=== PATIENT | male | born 1950 | race Caucasian/White ===

== ENCOUNTER 2019-02-02 08:30 | Day surgery (SDC) | payer MEDICARE ==
[~2019-02-02 08:30] MED LIST: Midazolam* 1 MG/ML 2 ML VIAL (2 MG) ONE
[2019-02-02] MEDS ORDERED: Midazolam* 1 MG/ML 2 ML VIAL (2 MG) ONE (10:40)
--- NOTE | 2019-02-02 11:54 | OP ---
DATE OF OPERATION: 02/02/19 [facility] DATE OF : 50 SURGEON: Hira Waggoner M.D. PREOPERATIVE DIAGNOSIS: Cataract, right eye. POSTOPERATIVE DIAGNOSIS: Cataract, right eye. OPERATIVE PROCEDURE: Extracapsular cataract extraction with intraocular lens implant, right eye. PROCEDURE: The patient was brought to the operating room after being given 1/2 % Alcaine with epinephrine drops in the preoperative area. The eye was prepped and draped in the usual sterile fashion. Sterile drape and eyelid speculum were placed. Again, topical 1/2% Alcaine with epinephrine was given. A paracentesis incision was made at the 9 o'clock position with the No.75 blade. Clear cornea incision 2.2 x 2.2 mm was created at the 12 o'clock position starting at the anterior limbus using the 2.2 mm keratome. The anterior chamber was irrigated with 0.4 mL of 1% non-preservative intracameral lidocaine and filled with DisCoVisc. A capsulorrhexis was completed using the cystotome and the Utrata forceps. Hydrodissection was performed with balanced salt solution. The lens nucleus was removed with the Phacoemulsification handpiece without incident. Cortex was removed with the irrigation-aspiration handpiece. The capsular bag was re-inflated using DisCoVisc and an SN60WF 18.5 implant was inserted with the shooter. The irrigation-aspiration handpiece was used to remove all residual DisCoVisc. The eye was refilled with balanced salt solution and the wound checked and found to be watertight. Topical Maxitrol drops were given. [id number]/[facility] #: [id number] [facility]ENTERMaya
[2019-02-02 11:58] VITALS: BP 125/75
[2019-02-02] MEDS ORDERED: Lidocaine 1% MPF ** 5 ML VIAL ONE (12:22)
[2019-02-02] MEDS ORDERED: Phenylephrine OPHTH SOL 2.5%* 2 ML ONE (12:22)
[2019-02-02] MEDS ORDERED: Cyclopentolate 1% OPTH.SOL* 2 ML BTL ONE (12:22)
[2019-02-02] MEDS ORDERED: Neomycin/Polymy/Dex OPTH.SUSP* MAXITROL 0.1% 5 ML ONE (12:22)
[2019-02-02] MEDS ORDERED: Proparacaine 0.5% OPHTH.SOL* 15 ML BTL ONE (12:22)
[2019-02-02] MEDS ORDERED: Ketorolac 0.5% OPHTH (NF) 0.5 % 5 ML BTL ONE (12:22)
[2019-02-02] MEDS ORDERED: Lidocaine 2% w/ EPI 1:200,000* 20 ML SDV VIAL ONE (12:22)
[2019-02-02] MEDS ORDERED: acetaZOLAMIDE TAB* 250 MG ONE (12:22)
[2019-02-02] MEDS ORDERED: Povidone Iodine 5% OPTH* 30 ML BTL ONE (12:22)
== END 2019-02-02 11:17 | disposition home or self-care (01) ==
LOC: OREAST 08:30
PROVIDERS: ATTEND Specialist
DX: H25.811 Combined forms of age-related cataract, right eye (principal); E11.9 Type 2 diabetes mellitus without complications; Z79.84 Long term (current) use of oral hypoglycemic drugs; I10 Essential (primary) hypertension; M10.9 Gout, unspecified; F41.8 Other specified anxiety disorders; E78.5 Hyperlipidemia, unspecified; Z85.51 Personal history of malignant neoplasm of bladder
CPT/HCPCS: A9270-GY; J2250; V2632

== ENCOUNTER 2019-02-23 08:24 | Day surgery (SDC) | payer MEDICARE ==
[~2019-02-23 08:24] MED LIST changes: +Buffered Lidocaine 1% SYRIN* 1 ML/SYRINGE INTRADERM ONE; +Cyclopentolate 1% OPTH.SOL* 2 ML BTL ONE; +Ketorolac 0.5% OPHTH (NF) 0.5 % 5 ML BTL ONE; +Lidocaine 1% MPF ** 5 ML VIAL ONE; +Lidocaine 2% w/ EPI 1:200,000* 20 ML SDV VIAL ONE; -Midazolam* 1 MG/ML 2 ML VIAL (2 MG) ONE; +Neomycin/Polymy/Dex OPTH.SUSP* MAXITROL 0.1% 5 ML ONE; +Phenylephrine OPHTH SOL 2.5%* 2 ML ONE; +Povidone Iodine 5% OPTH* 30 ML BTL ONE; +Proparacaine 0.5% OPHTH.SOL* 15 ML BTL ONE; +acetaZOLAMIDE TAB* 250 MG ONE
[2019-02-23] MEDS ORDERED: Midazolam* 1 MG/ML 2 ML VIAL (2 MG) ONE ×2 (10:02→10:22)
[2019-02-23 12:45] VITALS: BP 133/60
--- NOTE | 2019-02-23 13:15 | OP ---
DATE OF OPERATION: 02/23/[address] [facility] DATE OF : 50 SURGEON: Hira Waggoner M.D. PREOPERATIVE DIAGNOSIS: Cataract, left eye. POSTOPERATIVE DIAGNOSIS: Cataract, left eye. OPERATIVE PROCEDURE: Extracapsular cataract extraction with intraocular lens implant left eye. DESCRIPTION OF PROCEDURE: The patient was brought to the operating room after being given 1/2% Alcaine with epinephrine drops in the preoperative area. The eye was prepped and draped in the usual sterile fashion. Sterile drape and eyelid speculum were placed. Again, topical 1/2% Alcaine with epinephrine was given. A paracentesis incision was made at the 3 o'clock position with the No.75 blade. Clear cornea incision 2.2 x 2.2-mm was created at the 6 o'clock position starting at the anterior limbus using the 2.2-mm keratome. The anterior chamber was irrigated with 0.4 mL of 1% non-preservative intracameral lidocaine and filled with DisCoVisc. A capsulorrhexis was completed using the cystotome and the Utrata forceps. Hydrodissection was performed with balanced salt solution. The lens nucleus was removed with the Phacoemulsification handpiece without incident. Cortex was removed with the irrigation-aspiration handpiece. The capsular bag was re-inflated using DisCoVisc and an SN60WF 19.5 implant was inserted with the shooter. The irrigation-aspiration handpiece was used to remove all residual DisCoVisc. The eye was refilled with balanced salt solution and the wound checked and found to be watertight. Topical Maxitrol drops were given. [id number]/[facility] #: [id number] [facility]
== END 2019-02-23 11:10 | disposition home or self-care (01) ==
LOC: OREAST 08:24
PROVIDERS: ATTEND Specialist
DX: H25.812 Combined forms of age-related cataract, left eye (principal); E11.9 Type 2 diabetes mellitus without complications; Z79.84 Long term (current) use of oral hypoglycemic drugs; I10 Essential (primary) hypertension; E78.5 Hyperlipidemia, unspecified; M10.9 Gout, unspecified; Z85.51 Personal history of malignant neoplasm of bladder
CPT/HCPCS: A9270-GY; J2250; V2632

== ENCOUNTER 2019-10-10 07:26 | Inpatient (IN) ==
[2019-10-10] MEDS ORDERED: NS 0.9% 1000 ml BAG 1,000 ML IV ONE ×2 (07:48→08:58)
[2019-10-10] MEDS ORDERED: metroNIDAZOLE IV 500 MG/100ML 500 MG/100 ML BAG IVPB ONE (08:00)
[2019-10-10] MEDS ORDERED: Cefepime 2 GM in NS 0.9% 50 ML 50 ML IVPB ONE (08:14)
[2019-10-10 08:31] LABS: ABS Lymphocytes 0.8 10^3/ul (1.0-4.8); ABS Monocytes 1.5 10^3/ul (0-0.8); Eosinophil % 0.1 %; Hematocrit 35 % (42-52); Hemoglobin 12.7 g/dL (14.0-18.0); Mean Corpuscular HGB Conc 36 g/dL (31-36); Mean Corpuscular Hemoglobin 31 pg (27-31); Mean Corpuscular Volume 86 fL (80-94); Mean Platelet Volume 6.4 fL (7.4-10.4); Platelet Count 368 10^3/uL (150-450); Red Blood Count 4.08 10^6 /uL (4.18-5.48); Red Cell Distribution Width 13 % (10-15); White Blood Count 15.5 10^3/uL (3.5-10.8)
[2019-10-10] MEDS ORDERED: NS 0.9% 50 ML 50 ML ONE (08:33)
[2019-10-10 08:37] LABS: INR 1.31 (0.82-1.09)
[2019-10-10 08:45] LABS: Albumin 3.9 g/dL (3.2-5.2); Albumin/Globulin Ratio 1.2 (1-3); BUN/Creatinine Ratio 20.7 (8-20); C Reactive Protein 111.08 mg/L (<8.01); Calcium 9.7 mg/dL (8.6-10.3); EGFR African American 98.7 (>60); EGFR Non-African American 81.6 (>60); Globulin 3.2 g/dL (2-4); Potassium 4.3 mmol/L (3.5-5.0); Total Bilirubin 0.7 mg/dL (0.2-1.0); Total Protein 7.1 g/dL (6.4-8.9)
[2019-10-10] MEDS ORDERED: NS 0.9% 250 ml 250 ML ONE (08:46)
[2019-10-10] MEDS ORDERED: Cefepime 2 GM in Dextrose 2 GM/50 ML BAG IV ONE (09:00)
[2019-10-10] MEDS ORDERED: Vancomycin 1,500 MG in NS 0.9% 250 ml 250 ML IVPB ONE (09:00)
[2019-10-10 09:41] LABS: Erythrocyte Sed Rate 0 mm/Hr (0-19)
[2019-10-10] MEDS ORDERED: Lactated Ringers 1000 ml BAG 1,000 ML IV SCH (12:00)
[2019-10-10] MEDS: NS 0.9% 1000 ml BAG 1,000 ML IV SCH (12:51)
[2019-10-10 13:09] LABS: BUN/Creatinine Ratio 20.7 (8-20); Calcium 9.2 mg/dL (8.6-10.3); EGFR African American 112.7 (>60); EGFR Non-African American 93.2 (>60)
[2019-10-10] MEDS: Cefepime 1 GM in Dextrose 1 GM/50 ML BAG IV SCH (22:32)
[2019-10-11 06:19] LABS: ABS Eosinophils 0.1 10^3/ul (0-0.6); ABS Lymphocytes 1.2 10^3/ul (1.0-4.8); ABS Monocytes 1.5 10^3/ul (0-0.8); Eosinophil % 0.5 %; Hematocrit 33 % (42-52); Hemoglobin 11.9 g/dL (14.0-18.0); Lymphocyte % 9.3 %; Mean Corpuscular HGB Conc 36 g/dL (31-36); Mean Corpuscular Hemoglobin 31 pg (27-31); Mean Corpuscular Volume 87 fL (80-94); Mean Platelet Volume 6.3 fL (7.4-10.4); Platelet Count 362 10^3/uL (150-450); Red Blood Count 3.85 10^6 /uL (4.18-5.48); Red Cell Distribution Width 13 % (10-15); White Blood Count 12.7 10^3/uL (3.5-10.8)
[2019-10-11 06:46] LABS: BUN/Creatinine Ratio 19.7 (8-20); Calcium 9.2 mg/dL (8.6-10.3); EGFR Non-African American 101.7 (>60); Potassium 4.3 mmol/L (3.5-5.0)
[2019-10-11] MEDS: Cefepime 1 GM in Dextrose 1 GM/50 ML BAG IV SCH ×2 (08:05→20:22)
[2019-10-11] MEDS: NS 0.9% 1000 ml BAG 1,000 ML IV SCH (08:15)
[2019-10-11] MEDS: Enoxaparin 40 MG/0.4 ML SYR SUBCUT SCH (12:05)
[2019-10-11] MEDS: Metoprolol Succinate XL 200 mg TAB PO SCH (12:05)
[2019-10-12] MEDS: NS 0.9% 1000 ml BAG 1,000 ML IV SCH (05:14)
[2019-10-12 06:53] LABS: BUN/Creatinine Ratio 18.6 (8-20); Calcium 9.4 mg/dL (8.6-10.3); EGFR African American 135.3 (>60); EGFR Non-African American 111.8 (>60); Potassium 4.1 mmol/L (3.5-5.0)
[2019-10-12] MEDS: Cefepime 1 GM in Dextrose 1 GM/50 ML BAG IV SCH ×2 (08:16→21:17)
[2019-10-12 11:34] LABS: C Reactive Protein 51.21 mg/L (<8.01)
[2019-10-12] MEDS: Metoprolol Succinate XL 200 mg TAB PO SCH (11:36)
[2019-10-12] MEDS: Enoxaparin 40 MG/0.4 ML SYR SUBCUT SCH (11:58)
[2019-10-13 06:23] LABS: BUN/Creatinine Ratio 16.7 (8-20); Calcium 9.2 mg/dL (8.6-10.3); EGFR Non-African American 108.2 (>60); Potassium 4.3 mmol/L (3.5-5.0)
[2019-10-13] MEDS: Cefepime 1 GM in Dextrose 1 GM/50 ML BAG IV SCH ×2 (08:04→20:52)
[2019-10-13 11:09] LABS: TSH (Thyroid Stimulating Horm) 3.06 mcIU/mL (0.34-5.60)
[2019-10-13] MEDS: Enoxaparin 40 MG/0.4 ML SYR SUBCUT SCH (13:05)
[2019-10-13] MEDS: Metoprolol Succinate XL 200 mg TAB PO SCH (13:06)
[2019-10-13] MEDS ORDERED: Dextrose 50% Syringe 50 ml 25 GM/50 ML SYRINGE IV PUSH PRN (17:05)
[2019-10-14 06:26] LABS: ABS Eosinophils 0.1 10^3/ul (0-0.6); ABS Lymphocytes 1.5 10^3/ul (1.0-4.8); ABS Monocytes 1.2 10^3/ul (0-0.8); Eosinophil % 0.8 %; Hematocrit 33 % (42-52); Hemoglobin 11.6 g/dL (14.0-18.0); Lymphocyte % 11.1 %; Mean Corpuscular HGB Conc 35 g/dL (31-36); Mean Corpuscular Hemoglobin 30 pg (27-31); Mean Corpuscular Volume 87 fL (80-94); Mean Platelet Volume 6.2 fL (7.4-10.4); Nucleated Red Blood Cells % 0.1; Platelet Count 383 10^3/uL (150-450); Red Blood Count 3.82 10^6 /uL (4.18-5.48); Red Cell Distribution Width 13 % (10-15); White Blood Count 13.6 10^3/uL (3.5-10.8)
[2019-10-14 06:45] LABS: C Reactive Protein 25.17 mg/L (<8.01)
[2019-10-14] MEDS: Cefepime 1 GM in Dextrose 1 GM/50 ML BAG IV SCH ×3 (11:09→20:41)
[2019-10-14] MEDS: Metoprolol Succinate XL 200 mg TAB PO SCH (11:48)
[2019-10-14 16:08] LABS: INR 1.24 (0.82-1.09)
[2019-10-14 16:25] LABS: Potassium 4.2 mmol/L (3.5-5.0)
[2019-10-14] MEDS ORDERED: ceFAZolin 1 GM ADVAN 1 GM ADDV.VIAL IVPB ONE (17:02)
[2019-10-14] MEDS ORDERED: Propofol 10 MG/ML 20 ML BTL ONE (17:24)
[2019-10-14] MEDS ORDERED: Succinylcholine 200 mg VIAL 20 mg/ml 10 ml VIAL (200 mg) ONE (17:24)
[2019-10-14] MEDS ORDERED: Glycopyrrolate IV 0.2 MG/ML 1 ML VIAL ONE (17:24)
[2019-10-14] MEDS ORDERED: Rocuronium 50 mg VIAL 10 mg/ml 5 ml VIAL (50 mg) ONE (17:30)
[2019-10-14] MEDS ORDERED: fentaNYL 100 mcg/2 ml 50 MCG/ML VIAL ONE (17:31)
[2019-10-14] MEDS ORDERED: EPHEDrine (Pressors) 50 MG/ML VIAL ONE (17:52)
[2019-10-14] MEDS ORDERED: Dexamethasone IV 4 MG/ML VIAL 1 ml VIAL ONE (18:14)
[2019-10-14] MEDS ORDERED: Ondansetron 4 mg VIAL 2 MG/ML 2 ml VIAL ONE (18:14)
[2019-10-14 18:15] LABS: Uric Acid 6.1 mg/dL (4.4-7.6)
[2019-10-14] MEDS ORDERED: fentaNYL 100 mcg/2 ml 50 MCG/ML VIAL IV PRN (18:32)
[2019-10-14] MEDS ORDERED: Ondansetron 4 mg VIAL 2 MG/ML 2 ml VIAL IV PRN (18:32)
[2019-10-14] MEDS ORDERED: Naloxone 0.4 mg VIAL 0.4 mg/ml 1 ml VIAL IV PRN (18:32)
[2019-10-14] MEDS ORDERED: NS 0.9% 1000 ml BAG 1,000 ML IV SCH (20:15)
[2019-10-14] MEDS: HYDROcodone/ACETAMIN 5/325 mg TAB PO PRN (21:45)
[2019-10-15 06:26] LABS: ABS Lymphocytes 0.9 10^3/ul (1.0-4.8); Eosinophil % 0.1 %; Hematocrit 36 % (42-52); Hemoglobin 12.4 g/dL (14.0-18.0); Lymphocyte % 5.1 %; Mean Corpuscular HGB Conc 34 g/dL (31-36); Mean Corpuscular Hemoglobin 30 pg (27-31); Mean Corpuscular Volume 87 fL (80-94); Mean Platelet Volume 6.2 fL (7.4-10.4); Platelet Count 432 10^3/uL (150-450); Red Blood Count 4.14 10^6 /uL (4.18-5.48); Red Cell Distribution Width 13 % (10-15); White Blood Count 18.2 10^3/uL (3.5-10.8)
[2019-10-15 06:53] LABS: BUN/Creatinine Ratio 19.4 (8-20); Calcium 9.7 mg/dL (8.6-10.3); EGFR African American 142.3 (>60); EGFR Non-African American 117.6 (>60); Potassium 4.6 mmol/L (3.5-5.0)
[2019-10-15] MEDS: Cefepime 1 GM in Dextrose 1 GM/50 ML BAG IV SCH ×2 (09:12→21:13)
[2019-10-15] MEDS: HYDROcodone/ACETAMIN 5/325 mg TAB PO PRN ×2 (09:13→18:03)
[2019-10-15] MEDS: Enoxaparin 40 MG/0.4 ML SYR SUBCUT SCH (09:14)
[2019-10-15] MEDS: Metoprolol Succinate XL 200 mg TAB PO SCH (12:49)
[2019-10-16 06:20] LABS: ABS Basophils 0.1 10^3/ul (0-0.2); ABS Eosinophils 0.2 10^3/ul (0-0.6); ABS Lymphocytes 1.8 10^3/ul (1.0-4.8); ABS Monocytes 1.3 10^3/ul (0-0.8); Eosinophil % 1.1 %; Hematocrit 35 % (42-52); Hemoglobin 12.6 g/dL (14.0-18.0); Lymphocyte % 13.4 %; Mean Corpuscular HGB Conc 36 g/dL (31-36); Mean Corpuscular Hemoglobin 31 pg (27-31); Mean Corpuscular Volume 87 fL (80-94); Mean Platelet Volume 6.3 fL (7.4-10.4); Platelet Count 440 10^3/uL (150-450); Red Blood Count 4.05 10^6 /uL (4.18-5.48); Red Cell Distribution Width 13 % (10-15); White Blood Count 13.7 10^3/uL (3.5-10.8)
[2019-10-16 06:43] LABS: BUN/Creatinine Ratio 17.1 (8-20); C Reactive Protein 14.84 mg/L (<8.01); Calcium 9.4 mg/dL (8.6-10.3); EGFR Non-African American 101.7 (>60); Potassium 4.2 mmol/L (3.5-5.0)
[2019-10-16] MEDS: Enoxaparin 40 MG/0.4 ML SYR SUBCUT SCH (08:09)
[2019-10-16] MEDS: Cefepime 1 GM in Dextrose 1 GM/50 ML BAG IV SCH ×2 (08:10→22:00)
[2019-10-16] MEDS: Metoprolol Succinate XL 200 mg TAB PO SCH (11:52)
[2019-10-16] MEDS: HYDROcodone/ACETAMIN 5/325 mg TAB PO PRN (15:12)
[2019-10-17 06:31] LABS: ABS Basophils 0.1 10^3/ul (0-0.2); ABS Eosinophils 0.1 10^3/ul (0-0.6); ABS Lymphocytes 1.2 10^3/ul (1.0-4.8); Eosinophil % 1.2 %; Hematocrit 34 % (42-52); Hemoglobin 11.9 g/dL (14.0-18.0); Lymphocyte % 11.3 %; Mean Corpuscular HGB Conc 35 g/dL (31-36); Mean Corpuscular Hemoglobin 31 pg (27-31); Mean Corpuscular Volume 87 fL (80-94); Mean Platelet Volume 5.9 fL (7.4-10.4); Platelet Count 355 10^3/uL (150-450); Red Blood Count 3.88 10^6 /uL (4.18-5.48); Red Cell Distribution Width 14 % (10-15); White Blood Count 10.7 10^3/uL (3.5-10.8)
[2019-10-17 06:49] LABS: BUN/Creatinine Ratio 15.7 (8-20); C Reactive Protein 12.72 mg/L (<8.01); Calcium 9.1 mg/dL (8.6-10.3); EGFR African American 135.3 (>60); EGFR Non-African American 111.8 (>60); Potassium 4.2 mmol/L (3.5-5.0)
[2019-10-17] MEDS: Cefepime 1 GM in Dextrose 1 GM/50 ML BAG IV SCH ×2 (09:05→20:24)
[2019-10-17] MEDS: Enoxaparin 40 MG/0.4 ML SYR SUBCUT SCH (09:06)
[2019-10-17] MEDS: Metoprolol Succinate XL 200 mg TAB PO SCH (11:25)
[2019-10-18 07:51] LABS: ABS Eosinophils 0.2 10^3/ul (0-0.6); ABS Lymphocytes 0.9 10^3/ul (1.0-4.8); Eosinophil % 1.6 %; Hematocrit 36 % (42-52); Hemoglobin 12.6 g/dL (14.0-18.0); Lymphocyte % 8.5 %; Mean Corpuscular HGB Conc 35 g/dL (31-36); Mean Corpuscular Hemoglobin 31 pg (27-31); Mean Corpuscular Volume 88 fL (80-94); Mean Platelet Volume 6.3 fL (7.4-10.4); Platelet Count 365 10^3/uL (150-450); Red Blood Count 4.09 10^6 /uL (4.18-5.48); Red Cell Distribution Width 14 % (10-15)
[2019-10-18 07:55] LABS: BUN/Creatinine Ratio 14.9 (8-20); C Reactive Protein 11.77 mg/L (<8.01); Calcium 9.4 mg/dL (8.6-10.3); EGFR African American 126.9 (>60); EGFR Non-African American 104.9 (>60); Potassium 4.1 mmol/L (3.5-5.0)
[2019-10-18] MEDS: Enoxaparin 40 MG/0.4 ML SYR SUBCUT SCH (09:28)
[2019-10-18] MEDS: Cefepime 1 GM in Dextrose 1 GM/50 ML BAG IV SCH (09:28)
[2019-10-18] MEDS: Metoprolol Succinate XL 200 mg TAB PO SCH (11:57)
[2019-10-18 16:20] VITALS: BP 138/76
== END 2019-10-18 16:10 | disposition home health service (06) | DRG 580 ==
LOC: ED 07:26 → ICU 11:48 → MEDTELE 16:19
PROVIDERS: ADMIT Internal Medicine Critical Care Medicine; ATTEND Hospitalist